=== PATIENT | female | born 1980 | race Caucasian/White ===

== ENCOUNTER 2018-02-06 17:23 | Emergency (ER) | payer SELFPAY ==
[2018-02-06] MEDS ORDERED: Fentanyl 100 MCG/2 ML VIAL ONE (17:36)
[2018-02-06 17:51] LABS: #Basophils 0.1 thou/uL (0.0-0.2); #Eosinphils 0.8 thou/uL (0.0-0.7); #Lymphocytes 3.7 thou/uL (1.20-3.40); #Monocytes 0.8 thou/uL (0.11-0.59); %Eosinophils 6.7 % (0.0-10.0); %Lymphocytes 32.8 % (21.0-51.0); %Monocytes 6.7 % (0.0-10.0); %Neutrophils 52.8 % (42.0-75.0); Mean Corpuscular HGB CONC 35.8 g/dL (32.0-36.0); Mean Corpuscular Hemoglobin 32.6 pg (27.0-31.0); Mean Platelet Volume 7.1 fL (7.4-10.4); Platelet Count 323 thou/uL (130-400); RBC Distribution Width 10.7 % (11.5-14.5); Red Blood Cell (RBC) Count 4.29 mill/uL (4.20-5.40); White Blood Cell (WBC) Count 11.3 thou/uL (4.8-10.8)
[2018-02-06 17:57] LABS: BHCG - Serum POSITIVE (NEGATIVE); Pregs Control Background? CLEAR/WHITE (CLR/WHITE); Pregs Control Bar Appear? YES (CONTROL BAR)
[2018-02-06 18:06] LABS: ALT (SGPT) 8 U/L (8-55); AST (SGOT) 14 U/L (5-34); Albumin 4.7 g/dL (3.5-5.0); Alkaline Phosphatase 82 U/L (40-150); Anion Gap 13 mmol/L (10-20); BUN (Urea Nitrogen) 16 mg/dL (7.0-18.7); Bilirubin, Total 0.5 mg/dL (0.2-1.2); Calc. Creatinine Clearance 0 mL/min (70-130); Calcium 9.6 mg/dL (7.8-10.44); Carbon Dioxide 24 mmol/L (22-29); Chloride 104 mmol/L (98-107); Estimated GFR-MDRD 77; Globulin 3.4 g/dL (2.4-3.5); Glucose 112 mg/dL (70-105); Lipase 21 U/L (8-78); Potassium 3.8 mmol/L (3.5-5.1); Protein, Total 8.1 g/dL (6.0-8.3); Sodium 137 mmol/L (136-145)
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
[2018-02-06] MEDS ORDERED: HYDROcodone/Acetaminophen 5/325 mg Tablet ONE (18:13)
== END 2018-02-06 19:21 | disposition home or self-care (01) ==
LOC: ERS 17:23
DX: O9A.211 Injury, poisoning and certain other consequences of external causes complicating pregnancy, first trimester (principal); S43.101A Unspecified dislocation of right acromioclavicular joint, initial encounter; Z32.01 Encounter for pregnancy test, result positive; V86.69XA Passenger of other special all-terrain or other off-road motor vehicle injured in nontraffic accident, initial encounter
CPT/HCPCS: 71045; 80053; 83690; 84702; 84703; 85025; 86900; 86901; 96374; J3010

== ENCOUNTER 2018-03-24 10:09 | Day surgery (SDC) | payer OTHER ==
[2018-03-23 11:59] VITALS: BMI 25.0
[2018-03-24] MEDS ORDERED: Fentanyl 100 MCG/2 ML VIAL ONE ×2 (10:37→12:07)
[2018-03-24 10:44] LABS: #Basophils 0.1 thou/uL (0.0-0.2); #Eosinphils 0.5 thou/uL (0.0-0.7); #Lymphocytes 2.1 thou/uL (1.20-3.40); #Monocytes 0.4 thou/uL (0.11-0.59); #Neutrophils 2.7 thou/uL (1.40-6.50); %Basophils 1.5 % (0.0-1.0); %Lymphocytes 35.9 % (21.0-51.0); %Monocytes 7.1 % (0.0-10.0); %Neutrophils 47.6 % (42.0-75.0); Hemoglobin 11.8 g/dL (12.0-16.0); Mean Corpuscular HGB CONC 34.5 g/dL (32.0-36.0); Mean Corpuscular Hemoglobin 32.3 pg (27.0-31.0); Mean Corpuscular Volume 93.7 fL (78.0-98.0); Platelet Count 278 thou/uL (130-400); RBC Distribution Width 11.8 % (11.5-14.5); Red Blood Cell (RBC) Count 3.65 mill/uL (4.20-5.40); White Blood Cell (WBC) Count 5.7 thou/uL (4.8-10.8)
[2018-03-24] MEDS ORDERED: CeleCOXIB 100 MG CAP ONE (10:52)
[2018-03-24] MEDS ORDERED: CEFAZOLIN/Water 2 GM/20 ML SYRINGE ONE (11:01)
[2018-03-24] MEDS ORDERED: Misoprostol 200 MCG TAB ONE (11:42)
[2018-03-24] MEDS ORDERED: Meperidine HCl/PF 25 MG/ML VIAL ONE (12:15)
--- NOTE | 2018-03-24 12:15 | OP ---
DATE OF PROCEDURE: 03/24/2018 PREOPERATIVE DIAGNOSIS: Missed at 9 weeks. POSTOPERATIVE DIAGNOSIS: Missed at 9 weeks. PROCEDURE PERFORMED: Suction dilation and curettage. ANESTHESIA: General LMA. ATTENDING SURGEON: Corazon Aranda M.D. PRODUCT OWNER: [place] [employer]. BLOOD LOSS: 200 mL. IVF: 600 mL crystalloid. URINE OUTPUT: 100 mL of clear urine. PATHOLOGY: Products of conception. DRAINS: None. COMPLICATIONS: None. FINDINGS: An 8-week size, mobile midpositioned uterus. Moderate amount of products of conception. Excellent hemostasis and uterine tone following the completion of the procedure. Cytotec 800 mcg was placed in the rectum. OPERATIVE TECHNIQUE: The patient was taken to the operating room where general anesthesia was obtain ed without difficulty. The patient was prepped and draped in a sterile fashion in the dorsal lithoto my position. I&O was performed during the vaginal prep. A weighted speculum was placed in the vagin a, slight Trendelenburg was obtained and the cervix was visualized with a right-angle retractor. The anterior lip of the cervix was grasped with a single tooth tenaculum and the cervix was progressivel y dilated with Khang dilators and an 8 mm suction curet was then assembled to the suction machine and testing was performed for the pressure with a maximum pressure of 55 mmHg. At that time, the suction curet was inserted into the uterine fundus. Pressure was applied and a suction curettage was perfor med x3 different passes noting the products of conception returning through the tubing. At that time the sharp curettage was performed until a gritty texture was noted in all uterine magana. There was some bleeding present at that time. Suction curet was placed back into the uterus and performed x2 a dditional passes with the pressure on, sharp curettage was again performed and a gritty texture was a gain noted. The uterus was then manually massaged and noted to contract well with minimal bleeding p resent. The suction curet was passed 1 additional time with minimal blood noting return and the uter us had contracted well. The instruments were removed out of the vagina. The tenaculum sites were no dolores to be hemostatic and the Cytotec was placed 800 mcg in the rectum prophylactically. The patient tolerated the procedure well. Sponge, lap, needle count correct x2. The patient was taken to recov arturo in stable condition. The patient received Ancef 2 grams prior to procedure.
[2018-03-24] MEDS ORDERED: PROPOFOL 200 MG/20 ML VIAL ONE (13:42)
[2018-03-24] MEDS ORDERED: Lidocaine 1% PF 5 ML VIAL ONE (13:42)
[2018-03-24] MEDS ORDERED: Dexamethasone 20 MG/5 ML VIAL ONE (13:42)
[2018-03-24] MEDS ORDERED: Ondansetron PF 4 MG/2 ML Vial ONE (13:42)
[2018-03-24] MEDS ORDERED: HYDROcodone/Acetaminophen 5/325 mg Tablet ONE (13:56)
[2018-03-24] MEDS ORDERED: Morphine 2 MG/ML SYRINGE IM PRN (13:58)
[2018-03-24] MEDS ORDERED: Promethazine HCl 25 MG/ML VIAL IM PRN (13:59)
[2018-03-24] MEDS ORDERED: Doxycycline 100 MG CAP PO SCH (14:00)
[2018-03-24] MEDS ORDERED: HYDROcodone/Acetaminophen 5/325 mg Tablet PO PRN ×2 (14:00)
[2018-03-24] MEDS ORDERED: Ondansetron PF 4 MG/2 ML Vial IVP PRN (14:01)
== END 2018-03-24 14:14 | disposition home or self-care (01) ==
LOC: SDC 10:09
PROVIDERS: ATTEND Student in an Organized Health Care Education/Training Program
PROC: 10D17ZZ Extraction of Products of Conception, Retained, Via Natural or Artificial Opening (ICD-10-PCS; principal; 2018-03-24)
DX: O02.1 Missed abortion (principal)
CPT/HCPCS: 36415; 85025; 86850; 86900; 86901; 88305; 96374; 96375; J2175; J3010